=== PATIENT | female | born 1960 | race Two or more races ===

== ENCOUNTER 2016-10-23 22:48 | Emergency (ER) | payer OTHER ==
[2016-10-23 22:56] VITALS: TEMP 97.8; BMI 29.9
--- NOTE | 2016-10-23 23:36 | PDOC ---
History of Present Illness - General History Source: Patient Exam Limitations: No Limitations - History of Present Illness Initial Comments: 10/23/16 23:39 Patient is a 56 year old female with pmhx of diabetes and who presents to the ED with right sided pressure headache for 4 days. Patient reports gradual pressure like sensation in the right eye and redness. Patient states that this is different than any of her headaches before and the medication does not alleviate the symptoms. Patient reports photophobia and blurry vision. Patient denies wearing glasses or contact lenses. She denies any head trauma or LOC. ALL - [facility] PCP - Sarbjit Scott <Jayleen Camejo - Last Filed: 10/23/16 23:48> <Mikaela Weldon - Last Filed: 10/24/16 03:17> - General Chief Complaint: Headache Stated Complaint: EYE PROBLEM Time Seen by Provider: 10/23/16 23:12 Past History <Jayleen Camejo - Last Filed: 10/23/16 23:48> - Past Medical History Diabetes: Yes HTN: Yes - Psycho/Social/Smoking Cessation Hx Suicidal Ideation: No Smoking History: Never smoked Have you smoked in the past 12 months: No Information on smoking cessation initiated: No Hx Alcohol Use: No Drug/Substance Use Hx: No Substance Use Type: None <Mikaela Weldon - Last Filed: 10/24/16 03:17> - Past Medical History Allergies/Adverse Reactions: Allergies Allergy/AdvReac Type Severity Reaction Status Date / Time No Known Allergies Allergy Verified 10/23/16 22:56 Home Medications: Ambulatory Orders Clotrimazole [Lotrimin 1% Cream -] 1 applic TP BID #120 g 09/19/15 Review of Systems - Review of Systems Able to Perform ROS?: Yes Comments:: 10/23/16 23:39 CONSTITUTIONAL: Absent: fever, chills, diaphoresis, generalized weakness, malaise, loss of appetite HEENT: Present: right eye pain and redness, photophobia, blurry vision. Absent: rhinorrhea, nasal congestion, throat pain, throat swelling, difficulty swallowing, mouth swelling, ear pain. CARDIOVASCULAR: Absent: chest pain, syncope, palpitations, irregular heart rate, lightheadedness , peripheral edema RESPIRATORY: Absent: cough, shortness of breath, dyspnea with exertion, orthopnea, wheezing, stridor, hemoptysis GASTROINTESTINAL: Absent: abdominal pain, abdominal distension, nausea, vomiting, diarrhea, constipation, melena, hematochezia GENITOURINARY: Absent: dysuria, frequency, urgency, hesitancy, hematuria, flank pain, genital pain MUSCULOSKELETAL: Absent: myalgia, arthralgia, joint swelling SKIN: Absent: rash, itching, pallor HEMATOLOGIC/IMMUNOLOGIC: Absent: easy bleeding, easy bruising, lymphadenopathy, frequent infections ENDOCRINE: Absent: unexplained weight gain, unexplained weight loss, heat intolerance, cold intolerance NEUROLOGIC: Present: headache Absent: focal weakness or paresthesias, dizziness, unsteady gait, seizure, mental status changes, bladder or bowel incontinence PSYCHIATRIC: Absent: anxiety, depression, suicidal or homicidal ideation, hallucinations. <Jayleen Camejo - Last Filed: 10/23/16 23:48> *Physical Exam - Vital Signs Last Vital Signs Temp Pulse Resp BP Pulse Ox 97.8 F 88 16 115/73 98 10/23/16 22:51 10/23/16 22:51 10/23/16 22:51 10/23/16 22:51 10/23/16 22:51 - Physical Exam Comments: 10/23/16 23:41 GENERAL: Well developed, well nourished. Awake and alert. No acute distress. HEENT: (+) visual acuity 20/20 L 20/30 R, Injected conjunctiva right eye, No eye discharge. Normocephalic, atraumatic. PERRLA, EOMI. Sclera are non-icteric. Moist mucous membranes. Oropharynx is clear. NECK: Supple. Full ROM. No JVD. Carotid pulses 2+ and symmetric, without bruits. No thyromegaly. No lymphadenopathy. CARDIOVASCULAR: Regular rate and rhythm. No murmurs, rubs, or gallops. Distal pulses are 2+ and symmetric. PULMONARY: No evidence of respiratory distress. Lungs clear to auscultation bilaterally. No wheezing, rales or rhonchi. ABDOMINAL: Soft. Non-tender. Non-distended. No rebound or guarding. No organomegaly. Normoactive bowel sounds. MUSCULOSKELETAL Normal range of motion at all joints. No bony deformities or tenderness. No CVA tenderness. EXTREMITIES: No cyanosis. No clubbing. No edema. No calf tenderness. SKIN: Warm and dry. Normal capillary refill. No rashes. No jaundice. NEUROLOGICAL: Alert, awake, appropriate. Cranial nerves 2-12 intact. PSYCHIATRIC: Cooperative. Good eye contact. Appropriate mood and affect. <Jayleen Camejo - Last Filed: 10/23/16 23:48> - Vital Signs Last Vital Signs Temp Pulse Resp BP Pulse Ox 97.8 F 88 16 115/73 98 10/23/16 22:51 10/23/16 22:51 10/23/16 22:51 10/23/16 22:51 10/23/16 22:51 <Mikaela Weldno - Last Filed: 10/24/16 03:17> ED Treatment Course - LABORATORY CBC & Chemistry Diagram: 10/24/16 00:04 10/24/16 00:04 <Mikaela Weldon - Last Filed: 10/24/16 03:17> Medical Decision Making - Medical Decision Making 10/24/16 03:03 56-year-old woman presents with 4 days of right sided headache and photophobia pt is diabetic -no gross focal neuro defiicts -no fever,no cp,no sob. Visual acuity 20/20 OS 20/30 OD eyes navneet eomi diff diag- uveitis/glaucoma/temporal arteritis ct head,orbit NEGATIVE for any acute pathology headache resolved with tylenol Ophthalmology consulted and spoke with DR TREVINO who will see remberto pt in his office later today -.Pt to call office today plan -will start on steroids for presumptive temporal arteritis <Mikaela Weldon - Last Filed: 10/24/16 03:17> *DC/Admit/Observation/Transfer - Attestations Scribe Attestion: 10/23/16 23:49 Documentation prepared by KEVON Foster, acting as medical office professional instructor for Mikaela Weldon MD. <Jayleen Camejo - Last Filed: 10/23/16 23:48> <Mikaela Weldon - Last Filed: 10/24/16 03:17> Diagnosis at time of Disposition: Pain of right eye - Discharge Dispostion Disposition: HOME Condition at time of disposition: Good - Referrals Referrals: Sarbjit Scott MD [Primary Care Provider] - Keanu Lua MD [Staff Physician] - - Patient Instructions Printed Discharge Instructions: DI for Eye Pain Additional Instructions: YOU MUST BE SEEN BY THE ALTERATIONS SEWER SOON POSSIBLE CALL DR Jayne LUA OFFICE FIRST THING IN THE MORNING CRITICAL POWER TECHNICIAN YOUR MEDICATION AT YOUR PHARMACY AND TAKE IT DIRECTED RETURN FOR ANY WORSENING SYMPTOMS Print Language: MACEDONIAN
[2016-10-24 00:20] LABS: BASOPHIL 0.5 % (0-2.0); EOSINOPHIL 1.6 % (0-4.5); MCH 27.5 pg (25.7-33.7); MCHC 32.6 g/dl (32.0-36.0); MEAN CELL VOLUME 84.2 fl (80-96); MEAN PLT VOLUME 8.8 fl (7.5-11.1); NEUTROPHILS 45.9 % (42.8-82.8); PLATELET COUNT 278 K/MM3 (134-434); RDW 14.9 % (11.6-15.6); WHITE BLOOD COUNT 5.7 K/mm3 (4.0-10.0)
[2016-10-24 00:32] LABS: INR 0.98 (0.82-1.09); PROTHROMBIN TIME (PATIENT) 10.8 SEC (9.98-11.88)
[2016-10-24 00:44] LABS: ALBUMIN 3.5 g/dl (3.4-5.0); ANION GAP 6 (8-16); BILIRUBIN,TOTAL 0.2 mg/dL (0.2-1.0); CALCIUM 9.1 mg/dL (8.5-10.1); CO2 30 mmol/L (21-32); CREATININE 0.9 mg/dL (0.55-1.02); GLUCOSE,RANDOM 183 mg/dL (74-106); SGOT/AST 13 U/L (15-37); SGPT/ALT 27 U/L (12-78); TOT PROT 7.2 g/dl (6.4-8.2)
[2016-10-24 00:45] LABS: ALK PHOS 127 U/L (45-117)
[2016-10-24] MEDS ORDERED: SODIUM CHLORIDE 1,000 ML IV STA (00:55)
[2016-10-24] MEDS ORDERED: ACETAMINOPHEN 500 MG TABLET (FP) PO ONE (02:13)
[2016-10-24] MEDS ORDERED: ACETAMINOPHEN 325 MG TABLET (FP) ONE (02:17)
[2016-10-24] MEDS ORDERED: predniSONE 20 MG TABLET (UD) PO ONE (02:41)
[2016-10-24] MEDS ORDERED: predniSONE 20 MG TABLET (UD) ONE (02:52)
[2016-10-24 04:42] VITALS: BP 124/69; PULSE 86
== END 2016-10-24 03:27 | disposition home or self-care (01) ==
LOC: JER 22:48
DX: H57.11 Ocular pain, right eye (principal); E11.9 Type 2 diabetes mellitus without complications; I10 Essential (primary) hypertension
CPT/HCPCS: 36415; 70450-TC; 70480-TC; 80053; 85025; 85610; 85651; 86140; 99282-25

== ENCOUNTER 2018-08-21 22:19 | Emergency (ER) | payer OTHER | END 2018-08-22 03:25 | disposition home or self-care (01) | LOC: JER 08-22 03:25 | PROC: 3E033GC Introduction of Other Therapeutic Substance into Peripheral Vein, Percutaneous Approach (ICD-10-PCS; principal; 2018-08-21) | DX: R07.9 Chest pain, unspecified (principal); I10 Essential (primary) hypertension; E11.9 Type 2 diabetes mellitus without complications ==

== ENCOUNTER 2022-05-04 10:00 | Emergency (ER) | payer OTHER ==
[2022-05-04 10:11] VITALS: BP 156/83; PULSE 100; RESP 20; TEMP 98; BMI 27.6
[2022-05-04] MEDS ORDERED: ACETAMINOPHEN 500 MG TABLET (FP) PO ONE (12:36)
[2022-05-04] MEDS ORDERED: KETOROLAC TROMETHAMINE 30 MG/1 ML VIAL IM ONE (12:36)
[2022-05-04] MEDS ORDERED: CYCLOBENZAPRINE HCL 10 MG TABLET (FP) PO ONE (12:36)
[2022-05-04] MEDS ORDERED: CYCLOBENZAPRINE HCL 10 MG TABLET (FP) ONE (12:37)
[2022-05-04] MEDS ORDERED: KETOROLAC TROMETHAMINE 30 MG/1 ML VIAL ONE (12:37)
[2022-05-04] MEDS ORDERED: ACETAMINOPHEN 500 MG TABLET (FP) ONE (12:38)
== END 2022-05-04 13:18 | disposition home or self-care (01) ==
LOC: JERFT 10:00 → JER 10:00 → JERFT 13:18
PROC: 3E023GC Introduction of Other Therapeutic Substance into Muscle, Percutaneous Approach (ICD-10-PCS; principal; 2022-05-04)
DX: M25.511 Pain in right shoulder (principal)
CPT/HCPCS: 96372; 99284-25

== ENCOUNTER 2023-08-16 22:02 | Emergency (ER) | payer OTHER ==
[2023-08-16 22:06] VITALS: BP 107/71; PULSE 83; RESP 20; TEMP 98.4; BMI 24.7
[2023-08-17] MEDS: ARTIFICIAL TEARS OPHTHALMIC DROPS OU ONE (01:07)
[2023-08-17] MEDS: NAPHAZOLINE 0.1% OPHTHALMIC SOLUTION 15 ML BOTTLE OU ONE (01:07)
[2023-08-17] MEDS ORDERED: NAPHAZOLINE 0.1% OPHTHALMIC SOLUTION 15 ML BOTTLE OD SCH (06:00)
== END 2023-08-17 01:07 | disposition home or self-care (01) ==
LOC: JER 22:02 → JERFT 22:02 → JER 08-17 01:07
DX: H10.13 Acute atopic conjunctivitis, bilateral (principal); H57.89 Other specified disorders of eye and adnexa
CPT/HCPCS: 99283-25